=== PATIENT | female | born 1990 | race Caucasian/White ===

== ENCOUNTER 2017-03-03 13:06 | Emergency (ER) | payer SELFPAY ==
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
[2017-03-03] MEDS ORDERED: IBUPROFEN 600 MG TAB PO ONE (13:48)
[2017-03-03] MEDS ORDERED: ACETAMINOPHEN 500 MG TAB PO ONE (13:48)
[2017-03-03 15:11] VITALS: BP 103/75; PULSE 72; RESP 14; O2SAT 98
[2017-03-03 15:59] VITALS: TEMP 98.2
== END 2017-03-03 15:11 | disposition home or self-care (01) ==
LOC: EDUNIT#
DX: S09.90XA Unspecified injury of head, initial encounter (principal); S00.81XA Abrasion of other part of head, initial encounter; S80.211A Abrasion, right knee, initial encounter; S80.212A Abrasion, left knee, initial encounter; S50.811A Abrasion of right forearm, initial encounter; V18.4XXA Pedal cycle driver injured in noncollision transport accident in traffic accident, initial encounter; Y92.410 Unspecified street and highway as the place of occurrence of the external cause; Y99.8 Other external cause status; Y93.55 Activity, bike riding